=== PATIENT | female | born 1940 | race Caucasian/White ===

== ENCOUNTER 2018-02-15 10:06 | Outpatient (CLI) | payer MEDICARE, OTHER, SELFPAY ==
[2018-02-15 10:30] LABS: HGB 10.9 g/dL (12.0-15.5); Mean Corp. HGB Concentration 32.1 g/dL (32.0-36.0); Mean Corpuscular Hemoglobin 34.2 pg (27.0-33.0); Mean Corpuscular Volume 106.6 fL (80-95); Mean Platelet Volume 9.3 fL (8.0-11.0); Platelet Count 253 x1000/uL (130-400); RBC 3.19 m/cumm (4.00-5.20); RBC Distribution Width 14.5 % (11.7-14.6); White Blood Cell Count 5.29 k/cumm (4.4-10.8)
[2018-02-15 11:24] LABS: ALT 18 U/L (12-78); AST 15 U/L (15-37); Albumin 3.9 g/dL (3.4-5.0); Alkaline Phosphatase 76 U/L (46-116); Anion Gap 7.7 mmol/L (3-11); BUN 16 mg/dL (7-18); Bilirubin, Total 0.4 mg/dL (0.2-1.0); CO2 24.3 mmol/L (21.0-32.0); CREATININE 1.33 mg/dL (0.55-1.02); Calcium 8.5 mg/dL (8.5-10.1); Chloride 107 mmol/L (98-107); Estimated GFR 38.79 (mL/min/1.73m2); Glucose 91 mg/dL (70-100); Potassium 4.5 mmol/L (3.5-5.1); Sodium 139 mmol/L (136-145)
[2018-02-15 11:28] LABS: C-Reactive Protein < 0.05 mg/dL (0.0-0.3)
[2018-02-15 13:38] LABS: ESR 22 MM/HR (0-30)
== END 2018-02-15 10:07 ==
PROVIDERS: PCP Nurse Practitioner; Visit Provider Internal Medicine Rheumatology
DX: M05.79 Rheumatoid arthritis with rheumatoid factor of multiple sites without organ or systems involvement (principal); Z79.899 Other long term (current) drug therapy
CPT/HCPCS: 36415; 80053; 85027; 85652; 86140

== ENCOUNTER 2018-02-22 10:32 | Outpatient (CLI) | payer MEDICARE, OTHER, SELFPAY ==
--- NOTE | 2018-02-22 10:47 | DI.REPORT_ITS ---
SYMPTOM/DIAGNOSIS: SEROPOSITIVE RHEUMATOID ARTHRITIS OF MULT JOINTS M05.79 RIGHT FOOT: The bones appear osteoporotic. A fixation plate is seen in the distal fibula. There has been a previous resection of the distal half of the proximal phalanx of the 2nd toe. The joint spaces are well maintained. No bony erosions are seen. There are no findings specific for rheumatoid arthritis. IMPRESSION: Post surgical changes. LEFT FOOT: The bones appear diffusely osteoporotic. No fracture or bony erosions are seen. The joint spaces are well maintained. IMPRESSION: No specific findings for rheumatoid arthritis.
== END 2018-02-22 10:33 ==
PROVIDERS: PCP Nurse Practitioner; Visit Provider Internal Medicine Rheumatology
DX: M05.79 Rheumatoid arthritis with rheumatoid factor of multiple sites without organ or systems involvement (principal); M81.0 Age-related osteoporosis without current pathological fracture; Z98.890 Other specified postprocedural states
CPT/HCPCS: 73630 ×2

== ENCOUNTER 2018-06-22 10:04 | Outpatient (CLI) | payer MEDICARE, OTHER, SELFPAY ==
[2018-06-22 11:16] LABS: HCT 35.8 % (36.0-46.0); HGB 11.4 g/dL (12.0-15.5); Mean Corp. HGB Concentration 31.8 g/dL (32.0-36.0); Mean Corpuscular Hemoglobin 33.5 pg (27.0-33.0); Mean Corpuscular Volume 105.3 fL (80-95); Mean Platelet Volume 10.1 fL (8.0-11.0); Platelet Count 248 x1000/uL (130-400); RBC Distribution Width 14.7 % (11.7-14.6); White Blood Cell Count 5.69 k/cumm (4.4-10.8)
[2018-06-22 11:19] LABS: ALT 29 U/L (12-78); AST 28 U/L (15-37); Albumin 3.9 g/dL (3.4-5.0); Alkaline Phosphatase 59 U/L (46-116); Anion Gap 7.7 mmol/L (3-11); BUN 18 mg/dL (7-18); Bilirubin, Total 0.4 mg/dL (0.2-1.0); CO2 28.3 mmol/L (21.0-32.0); CREATININE 1.55 mg/dL (0.55-1.02); Calcium 9.1 mg/dL (8.5-10.1); Chloride 104 mmol/L (98-107); Estimated GFR 32.42 (mL/min/1.73m2); Glucose 102 mg/dL (70-100); Potassium 4.2 mmol/L (3.5-5.1); Sodium 140 mmol/L (136-145); Total Protein 7.1 g/dL (6.4-8.2)
[2018-06-22 11:20] LABS: C-Reactive Protein < 0.05 mg/dL (0.0-0.3)
[2018-06-22 12:04] LABS: Vitamin B12 1542 pg/mL (193-986)
[2018-06-22 12:11] LABS: Folate > 20.0 ng/mL (8.6-20.0)
[2018-06-22 13:14] LABS: ESR 19 MM/HR (0-30)
[2018-06-24 07:57] LABS: Vitamin D 25 Total 53.3 ng/ml (30-100)
== END 2018-06-22 10:24 ==
PROVIDERS: PCP Nurse Practitioner; Visit Provider Internal Medicine Rheumatology
DX: M05.79 Rheumatoid arthritis with rheumatoid factor of multiple sites without organ or systems involvement (principal); Z79.899 Other long term (current) drug therapy; D75.89 Other specified diseases of blood and blood-forming organs; E55.9 Vitamin D deficiency, unspecified
CPT/HCPCS: 36415; 80053; 82306; 85027; 85652; 82607; 82746; 86140

== ENCOUNTER 2018-07-22 01:03 | Outpatient (RCR) | payer MEDICARE, OTHER, SELFPAY ==
[2018-07-22] MEDS: Denosumab 60 MG/ML SYR SC (10:03)
== END 2018-08-12 23:59 | disposition home or self-care (01) ==
LOC: INF 01:03
PROVIDERS: PCP Nurse Practitioner; Visit Provider Nurse Practitioner
DX: M81.0 Age-related osteoporosis without current pathological fracture (principal)
CPT/HCPCS: 96372; J0897

== ENCOUNTER 2018-07-29 09:13 | Outpatient (CLI) | payer MEDICARE, OTHER, SELFPAY ==
[2018-07-29 09:34] LABS: HCT 36.7 % (36.0-46.0); HGB 11.7 g/dL (12.0-15.5); Mean Corp. HGB Concentration 31.9 g/dL (32.0-36.0); Mean Corpuscular Hemoglobin 33.5 pg (27.0-33.0); Mean Corpuscular Volume 105.2 fL (80-95); Mean Platelet Volume 9.9 fL (8.0-11.0); Platelet Count 269 x1000/uL (130-400); RBC 3.49 m/cumm (4.00-5.20); RBC Distribution Width 14.4 % (11.7-14.6); White Blood Cell Count 4.52 k/cumm (4.4-10.8)
[2018-07-29 10:23] LABS: Anion Gap 9.4 mmol/L (3-11); BUN 14 mg/dL (7-18); CO2 26.6 mmol/L (21.0-32.0); CREATININE 1.53 mg/dL (0.55-1.02); Calcium 9.4 mg/dL (8.5-10.1); Chloride 106 mmol/L (98-107); Cholesterol 142 mg/dL (50-200); Estimated GFR 32.91 (mL/min/1.73m2); Glucose 92 mg/dL (70-100); HDL Cholesterol 60 mg/dL (40-60); LDL CHOLESTEROL 69 mg/dL (<100); Potassium 4.4 mmol/L (3.5-5.1); Sodium 142 mmol/L (136-145); Triglyceride 73 mg/dL (30-150)
== END 2018-07-29 09:33 ==
PROVIDERS: PCP Nurse Practitioner; Visit Provider Nurse Practitioner
DX: E03.9 Hypothyroidism, unspecified (principal); E78.5 Hyperlipidemia, unspecified; N18.9 Chronic kidney disease, unspecified; M06.9 Rheumatoid arthritis, unspecified; F32.9 Major depressive disorder, single episode, unspecified
CPT/HCPCS: 36415; 80048; 80061; 83721; 85027

== ENCOUNTER 2018-09-06 15:18 | Outpatient (REF) | payer MEDICARE, OTHER, SELFPAY | END 2018-09-06 15:38 | LOC: LBN 15:18 | PROVIDERS: PCP Nurse Practitioner; Visit Provider Nurse Practitioner | DX: E03.9 Hypothyroidism, unspecified (principal) | CPT/HCPCS: 84443 ==

== ENCOUNTER 2018-09-23 10:39 | Outpatient (CLI) | payer MEDICARE, OTHER, SELFPAY ==
[2018-09-23 11:20] LABS: HCT 34.4 % (36.0-46.0); HGB 11.3 g/dL (12.0-15.5); Mean Corp. HGB Concentration 32.8 g/dL (32.0-36.0); Mean Corpuscular Hemoglobin 33.8 pg (27.0-33.0); Mean Platelet Volume 9.6 fL (8.0-11.0); Platelet Count 266 x1000/uL (130-400); RBC 3.34 m/cumm (4.00-5.20); RBC Distribution Width 13.9 % (11.7-14.6); White Blood Cell Count 4.01 k/cumm (4.4-10.8)
[2018-09-23 12:01] LABS: ESR 27 MM/HR (0-30)
[2018-09-23 12:12] LABS: ALT 18 U/L (12-78); AST 22 U/L (15-37); Albumin 3.9 g/dL (3.4-5.0); Alkaline Phosphatase 64 U/L (46-116); Anion Gap 6.2 mmol/L (3-11); BUN 17 mg/dL (7-18); Bilirubin, Total 0.5 mg/dL (0.2-1.0); C-Reactive Protein 0.05 mg/dL (0.0-0.3); CO2 29.8 mmol/L (21.0-32.0); CREATININE 1.38 mg/dL (0.55-1.02); Calcium 9.5 mg/dL (8.5-10.1); Chloride 102 mmol/L (98-107); Estimated GFR 37.07 (mL/min/1.73m2); Glucose 88 mg/dL (70-100); Potassium 4.6 mmol/L (3.5-5.1); Sodium 138 mmol/L (136-145); Total Protein 7.1 g/dL (6.4-8.2)
== END 2018-09-23 10:59 ==
PROVIDERS: PCP Nurse Practitioner; Visit Provider Internal Medicine Rheumatology
DX: M05.79 Rheumatoid arthritis with rheumatoid factor of multiple sites without organ or systems involvement (principal); Z79.899 Other long term (current) drug therapy
CPT/HCPCS: 36415; 80053; 80061; 83721; 85027; 85652; 86140

== ENCOUNTER 2018-10-15 06:51 | Day surgery (SDC) | payer MEDICARE, OTHER, SELFPAY ==
--- NOTE | 2018-10-14 12:04 | W.PIPPEYE ---
History of Present Illness Chief Complaint: Progressive decreased vision, left eye Narrative: Patient is a 78-year-old lady who presented with complaints of progressive decreased vision in both eyes at both distance and near and significant glare. On examination she was noted to have bilateral nuclear and posterior subcapsular cataracts with visual acuity of 20/25 OD, 20/40 OS with significant glare disability. The option of cataract surgery was offered to the patient and she felt she was symptomatic enough that she wished to proceed. NOTE: The Chief Complaint, HPI, Past Medical History, Past Surgical History, Family History, Social History, Medications, and complete Ophthalmic Exam with detailed Assessment and Plan have already been documented in the patient's outpatient ophthalmic record and are not covered again in detail here. PFSH Medical History Nuclear sclerotic cataract of left eye (Acute) Posterior subcapsular age-related cataract of left eye (Acute) History of CVA (cerebrovascular accident) (Acute) History of depression (Acute) Hx of coronary artery disease (Acute) Hx of rheumatoid arthritis (Acute) High cholesterol (Chronic) Surgical History History of ankle surgery (Acute) Toe Surgery (~03/2014) Family History Mother Neoplasm Father No problems noted. Social History Smoking/Tobacco Use Status: Former Tobacco Use Alcohol Intake: former Drug use: Never Substance use type: does not use Number of Children: 1 Pets and animals: Yes Pets and animals: cat(s) Current gender identity: female What type of physical activity do you participate in: other Details: line dancing Frequency: 1-2 times per week Do you feel safe in your relationship?: Yes Meds Home Medications Medication Instructions Recorded Confirmed Type coenzyme Q10 [Co Q-10] 100 mg PO DAILY 04/14/17 10/11/18 History folic acid 1 mg PO TID 04/14/17 10/11/18 History hydroxychloroquine 200 mg PO DAILY 04/14/17 10/11/18 History acetaminophen 500 mg PO BID 10/26/17 10/11/18 History calcium carbonate [Tums] 200 mg PO DAILY tab.chew 11/18/17 10/11/18 History cholecalciferol (vitamin D3) 5,000 unit PO DAILY 11/18/17 10/11/18 History fluticasone propionate 2 spry NS BID #1 canister 12/17/17 10/11/18 Rx atorvastatin [Lipitor] 20 mg PO HS #90 tab-cap 01/04/18 10/11/18 Rx levothyroxine 75 mcg PO DAILY #90 tab-cap 01/04/18 10/11/18 Rx denosumab [Prolia] 60 mg SQ .Q 6 MONTHS 01/20/18 10/11/18 History methotrexate sodium (PF) 50 mg 75 mg .ROUTE .COMPLEX 07/08/18 10/11/18 History solution for injection sulfasalazine 500 mg tablet 500 mg PO BID 07/20/18 10/11/18 History sertraline 50 mg tablet 50 mg PO DAILY #90 tab 08/24/18 10/11/18 Rx trazodone 150 mg tablet 150 mg PO HS #90 tab-cap 08/24/18 10/11/18 Rx vitamin [id number] B1 1,000 ml IM .MONTHLY 09/06/18 10/07/18 History mcg-100 mg/mL injection solution lorazepam 0.5 mg tablet 0.5 mg PO PRN PRN #30 tab-cap 09/15/18 10/11/18 Rx carboxymethylcellulose sodium 1 drp OPHTHALMIC (EYE) BID 10/11/18 10/11/18 History [TheraTears] Allergies Allergy/AdvReac Type Severity Reaction Status Date / Time amitriptyline HCl AdvReac Severe Excessive Verified 10/11/18 14:07 [From Elavil] tiredness, sleeping doxycycline AdvReac Severe Excessive Verified 10/11/18 14:07 tiredness, sleeping Exam OCULAR EXAM:: Most recent ocular examination is significant for best corrected visual acuity of 20/30 OD, 20/40 OS. Intraocular pressure is 14 OD, 12 OS. Extraocular motility is normal. Slit-lamp examination shows pupils dilating to 6 mm OU. 2+ nuclear cataract with posterior subcapsular cataract OU. Dilated funduscopic examination reveals disc cupping of 0.45 OU with normal vessels, macula, peripheral retina and vitreous. BRIGHTNESS ACUITY TESTING (BAT):: Brightness acuity testing of the left eye off is 20/40. Low is 20/70. Medium is 20/70. High is 20/100. Assessment and Plan (1) Posterior subcapsular age-related cataract of left eye: Current visit: No Status: Acute Assessment: Visually significant cataract, left eye. Plan: Cataract extraction with intraocular lens implantation, left eye (2) Nuclear sclerotic cataract of left eye: Current visit: No Status: Acute Assessment: Visually significant cataract, left eye. Plan: Cataract extraction with intraocular lens implantation, left eye Note: NOTE:: The details of the planned surgery, including the risks, indications,limitations,expectations,outcome and possible complications were explained to the patient. The patient understands the complications including, but not limited to: infection, hemorrhage, posterior dislocation of the lens or nuclear fragments which may require the intervention of a vitreoretinal surgeon, possible loss of the eye, or from anesthetic complications. The patient has been made aware of the option of not having surgery, that vision following surgery may not be equal to that prior to surgery, and that the planned surgery may not achieve the intended results. Following this discussion, which the patient appeared to understand, the patient wishes to proceed with cataract surgery with lens implantation of the affected eye to improve and maximize vision.
[2018-10-15 07:20] VITALS: BP 141/77; PULSE 97; RESP 18; TEMP 36.3; O2SAT 96
[2018-10-15] MEDS: Tetracaine 0.5% 4 ML BTL OS ×4 (07:24→08:23)
[2018-10-15] MEDS: Tropicam./Phenyleph. (1/2.5%) 5 ML BTL OS ×3 (07:24→07:31)
--- NOTE | 2018-10-15 08:08 | W.PM.DSUDISC ---
Discharge Plan Disposition Patient Disposition: HOME Condition: Stable Discharge Details Attending Provider: Doug Lieberman Primary Care Provider: Inge Stiles Home Meds and New Rx's Prescriptions: No Action acetaminophen 500 MG tablet 500 mg PO BID RF: 0 cholecalciferol (vitamin D3) 5,000 UNIT tablet 5,000 unit PO DAILY RF: 0 calcium carbonate [Tums] 200 MG tablet,chewable 200 mg PO DAILY RF: 0 fluticasone propionate 16 GM spray,suspension 2 spry NS BID Qty: 1 RF: 12 atorvastatin [Lipitor] 20 MG tablet 20 mg PO HS Qty: 90 RF: 3 levothyroxine 75 MCG tablet 75 mcg PO DAILY Qty: 90 RF: 3 Prolia 60 MG/1 ML syringe 60 mg SQ .Q 6 MONTHS RF: 0 methotrexate sodium (PF) 50 mg recon soln 75 mg .ROUTE .COMPLEX RF: 0 sertraline 50 mg tablet 50 mg PO DAILY Qty: 90 RF: 3 trazodone 150 mg tablet 150 mg PO HS Qty: 90 RF: 3 lorazepam 0.5 mg tablet 0.5 mg PO PRN PRN (Reason: anxiety) Qty: 30 RF: 2 TheraTears 1 % Dropperette,Gel 1 drp OPHTHALMIC (EYE) BID RF: 0 Discharge Instructions Stand Alone Forms: Post-op Topical CataractHolly (DSU) Discharge Orders Discharge Orders: Discharge Order (Routine); Ordered 10/15/18 Ordered By: Doug Lieberman DS: Diagnosis Discharge Diagnosis (1) Posterior subcapsular age-related cataract of left eye: Status: Resolved (2) Nuclear sclerotic cataract of left eye: Status: Resolved (3) Status post cataract extraction and insertion of intraocular lens of left eye: Status: Chronic
--- NOTE | 2018-10-15 08:09 | W.PM.OP ---
Date of service: 10/15/18 Time of Service: 08:48 Operative Note PRE-OP DIAGNOSIS: Cataract, left eye POST-OP DIAGNOSIS: same PROCEDURE: Cataract extraction using phacoemulsification with intraocular lens implant, left eye SURGEON: Doug Lieberman ANESTHESIA: MAC and local (sub-tenon's anesthetic infiltration) PATHOLOGY: none sent COMPLICATIONS: None Patient was transported to: same day Patient's condition: stable Implants: [employer] / [employer] Tecnis [id number] Indications: Progressive decreased vision due to cataract, left eye Procedure Description: CATARACT SURGERY OPERATIVE REPORT PREOPERATIVE DIAGNOSIS: Nuclear/posterior subcapsular cataract, left eye POSTOPERATIVE DIAGNOSIS: Same OPERATION: Cataract extraction using phacoemulsification with posterior chamber intraocular lens implant, left eye. IOL: IOL Carburizing Furnace Operator/Model: [employer] / MAXIMINO Tecnis ZCB00 IOL Power: + 23.0 diopters IOL Serial Number: [id number] Optic Diameter: 6.0mm Haptic/Overall Diameter: 13.0mm PHACO INFO: [employer] Vision System with OZil and Active [employer]uidics Cumulative Dispersed Energy (CDE): 11.73 seconds SURGEON: Doug Lieberman MD, [facility] ANESTHESIA: Monitored Anesthesia Care (MAC), with local sub-tenon's anesthetic infiltration COMPLICATIONS: None SPECIMENS: None INDICATIONS FOR PROCEDURE: The patient is a 78-year old lady with history of diminished visual acuity in both eyes secondary to the development of bilateral nuclear posterior subcapsular cataract. She was significantly symptomatic that she desired cataract surgery and attempt to improve and maximize her vision PROCEDURE: The correct surgical eye was identified and marked as the left eye and the pupil was dilated in the preoperative area using mydriatics and cycloplegics. The dilated pupil size was 6.5 mm. Oral sedation was administered in the form of an Imprimis MKO Melt (midazolam 3mg/ketamine 25mg/ondansetron 2mg). The patient was brought to the operating room where cardiopulmonary monitoring was instituted and surgical time-out was performed, confirming the correct operative eye and IOL power. Topical anesthesia was administered and ophthalmic povidone-iodine 5% was instilled into the conjunctival fornices. Lidocaine gel was applied to the cornea and the davidson-ocular area was prepped with Betadine 10% solution and draped in the usual sterile fashion for intraocular surgery, including an aperture drape. A Tegaderm transparent film dressing was cut in half and used to cover the lashes and lid margins. Care was taken to sequester the lashes and lid margins under the Tegaderm dressing. A lid speculum was placed between the lids of the operative eye and the Filiberto-Ella operating microscope was maneuvered into position. Aditya scissors were then used to make a conjunctival buttonhole approximately 6mm posterior to the limbus in the inferonasal quadrant. Blunt dissection was carried out to expose bare sclera, and a blunt-tipped sub-tenon?s anesthesia cannula was introduced and passed posteriorly along the globe where non-preserved plain lidocaine was injected into posterior sub-Tenon?s space. A sideport knife was used to make a paracentesis port superior/superiortemporal, and the anterior chamber was filled with Healon GV. A 2.4mm keratome knife was used to create a half-thickness groove at the limbus and then to construct a three-plane near-clear corneal tunnel extending 2.0mm into clear cornea in the temporal position. . A flap was raised on the anterior capsule and capsulorhexis forceps were used to complete a continuous curvilinear capsulorhexis of 5.0 mm. Balanced salt solution was then used to perform cortical cleaving hydrodissection and nuclear hydrodelineation until the lens could be freely rotated within the capsular bag. The lens nucleus was then disassembled and removed within the capsular bag and iris plane using phacoemulsification. Residual cortical material was removed using the 45-degree angled silicone I/A tip with 0.3mm port. The posterior capsule was carefully polished to remove as much residual lens epithelial cells as safely possible. The capsular bag was then inflated and the anterior chamber deepened with viscoelastic. The lens implant described above was inserted into the capsular bag using the MAXIMINO [place] Injector. A Kuglen hook was used to dial the IOL into position. Residual viscoelastic was then removed first from posterior to the IOL, then from the anterior chamber using the I/A handpiece. The lens implant was noted to center nicely within the capsular bag. The incisions were stromally hydrated, and the anterior chamber was reformed using BSS. Then 0.4cc of moxifloxacin 1.5mg/ml were injected into the capsular bag and anterior chamber. The incisions were checked with a Weck spear and found to be secure. Several drops of ophthalmic povidone-iodine 5% were then applied to the eye followed by two drops of Imprimis combination gatifloxacin/dexamethasone solution. The drapes were removed and a clear plastic protective eye shield was placed over the eye. The patient was then returned to [facility] in stable condition.
[2018-10-15] MEDS: Lidocaine 2% Jelly 6 ML SYR (08:23)
[2018-10-15] MEDS: Povidone-Iodine Ophth 30 ML BTL (08:24)
[2018-10-15] MEDS: Lidocaine 1% Pres-Free 5 ML VIAL (08:27)
[2018-10-15] MEDS: Balanced Salt Soln.-PLUS 500 ML BAG (08:27)
[2018-10-15 09:15] VITALS: BP 119/69; PULSE 83; RESP 18; O2SAT 97
== END 2018-10-15 09:35 | disposition home or self-care (01) ==
PROVIDERS: PCP Nurse Practitioner; Visit Provider Ophthalmology
PROC: (CPT 66984; principal; 2018-10-15 08:30)
DX: H25.812 Combined forms of age-related cataract, left eye (principal)
CPT/HCPCS: 66984; V2632

== ENCOUNTER 2018-10-18 14:45 | Outpatient (CLI) | payer MEDICARE, OTHER, SELFPAY ==
--- NOTE | 2018-10-18 12:00 | DI.RAD_ITS ---
SYMPTOMS/DIAGNOSIS: NEW ONSET LOW BACK PAIN, M54.5, OSTEOPOROSIS, ? FX LUMBAR SPINE: AP, lateral and bilateral oblique views were obtained. There are five lumbar- type vertebral bodies. No spondylolysis or spondylolisthesis is seen. There is a mild left convex scoliotic curvature of the lumbar spine. There is moderate disc space narrowing at L3-L4. Endplate osteophytes are seen at L2-L3 and L3- L4. There are degenerative changes of the facets at L4-L5 and L5-S1. No acute fractures or subluxations are seen. There is calcium within the abdominal aorta. IMPRESSION: Mild to moderate degenerative changes of the lumbar spine. No acute fractures or subluxations.
== END 2018-10-18 15:05 ==
PROVIDERS: PCP Nurse Practitioner; Visit Provider Family Medicine
DX: M54.5 Low back pain (principal); M81.0 Age-related osteoporosis without current pathological fracture; M51.37 Other intervertebral disc degeneration, lumbosacral region
CPT/HCPCS: 72110

== ENCOUNTER 2018-11-05 06:28 | Day surgery (SDC) | payer MEDICARE, OTHER, SELFPAY ==
--- NOTE | 2018-11-04 12:49 | W.PIPPEYE ---
History of Present Illness Chief Complaint: Progressive decreased vision, right eye Narrative: The patient is a 78-year-old lady with history of progressive decreased vision in both eyes at both distance and near. She notes significant difficulty with glare. She uses a magnifying glass to read and use her tablet. On examination she was noted to have bilateral nuclear and posterior subcapsular cataracts. She was significantly symptomatic she desires cataract surgery which was performed OS on 10/15/2018. Postoperatively she has regained best corrected vision of 20/30 in the left eye. She now presents for cataract surgery in the right eye. NOTE: The Chief Complaint, HPI, Past Medical History, Past Surgical History, Family History, Social History, Medications, and complete Ophthalmic Exam with detailed Assessment and Plan have already been documented in the patient's outpatient ophthalmic record and are not covered again in detail here. PFS Medical History History of CVA (cerebrovascular accident) (Acute) History of depression (Acute) Hx of coronary artery disease (Acute) Hx of rheumatoid arthritis (Acute) High cholesterol (Chronic) Nuclear sclerotic cataract of left eye (Resolved) Posterior subcapsular age-related cataract of left eye (Resolved) Surgical History Status post cataract extraction and insertion of intraocular lens of left eye (Chronic 10/15/18) History of ankle surgery (Acute) Toe Surgery (~03/2014) Family History Mother Neoplasm Father No problems noted. Social History Smoking/Tobacco Use Status: Former Tobacco Use Alcohol Intake: former Drug use: Never Substance use type: does not use Number of Children: 1 Pets and animals: Yes Pets and animals: cat(s) Current gender identity: female What type of physical activity do you participate in: other Details: line dancing Frequency: 1-2 times per week Do you feel safe in your relationship?: Yes Meds Home Medications Medication Instructions Recorded Confirmed Type coenzyme Q10 [Co Q-10] 100 mg PO DAILY 04/14/17 10/18/18 History folic acid 1 mg PO TID 04/14/17 10/18/18 History hydroxychloroquine 200 mg PO DAILY 04/14/17 10/18/18 History acetaminophen 500 mg PO BID 10/26/17 10/18/18 History calcium carbonate [Tums] 200 mg PO DAILY tab.chew 11/18/17 10/18/18 History cholecalciferol (vitamin D3) 5,000 unit PO DAILY 11/18/17 10/18/18 History fluticasone propionate 2 spry NS BID #1 canister 12/17/17 10/18/18 Rx atorvastatin [Lipitor] 20 mg PO HS #90 tab-cap 01/04/18 10/18/18 Rx levothyroxine 75 mcg PO DAILY #90 tab-cap 01/04/18 10/18/18 Rx denosumab [Prolia] 60 mg SQ .Q 6 MONTHS 01/20/18 10/18/18 History methotrexate sodium (PF) 50 mg 75 mg .ROUTE .COMPLEX 07/08/18 10/18/18 History solution for injection sulfasalazine 500 mg tablet 500 mg PO BID 07/20/18 10/18/18 History sertraline 50 mg tablet 50 mg PO DAILY #90 tab 08/24/18 10/18/18 Rx trazodone 150 mg tablet 150 mg PO HS #90 tab-cap 08/24/18 10/18/18 Rx vitamin [id number]-[id number] B1 1,000 ml IM .MONTHLY 09/06/18 10/18/18 History mcg-100 mg/mL injection solution lorazepam 0.5 mg tablet 0.5 mg PO PRN PRN #30 tab-cap 09/15/18 10/18/18 Rx carboxymethylcellulose sodium 1 drp OPHTHALMIC (EYE) BID 10/11/18 10/18/18 History [TheraTears] Allergies Allergy/AdvReac Type Severity Reaction Status Date / Time amitriptyline HCl AdvReac Severe Excessive Verified 10/18/18 11:52 [From Elavil] tiredness, sleeping doxycycline AdvReac Severe Excessive Verified 10/18/18 11:52 tiredness, sleeping Exam OCULAR EXAM:: Most recent ocular examination reveals corrected visual acuity of 20/30 OD, best corrected vision of 20/30 OS. Intraocular pressure is 14 OD, OS. Extraocular motility is normal. Pupils equal, round, and reactive without afferent pupillary defect slit-lamp examination is significant for pupils dilating to 6 mm OU. 2+ nuclear 1+ central posterior subcapsular cataract OD. Well-positioned PCIOL OS with clear posterior capsule. Dilated funduscopic examination shows disc cupping of 0.45 OU with normal vessels, macula, peripheral retina and vitreous. BRIGHTNESS ACUITY TESTING (BAT):: Testing of the right eye is 20/30. Low is 20/30. Medium is 20/50. On the high setting is 20/80. Assessment and Plan (1) Posterior subcapsular age-related cataract, right eye: Current visit: No Status: Acute (2) Nuclear sclerotic cataract of right eye: Current visit: No Status: Acute Note: NOTE:: The details of the planned surgery, including the risks, indications,limitations,expectations,outcome and possible complications were explained to the patient. The patient understands the complications including, but not limited to: infection, hemorrhage, posterior dislocation of the lens or nuclear fragments which may require the intervention of a vitreoretinal surgeon, possible loss of the eye, or from anesthetic complications. The patient has been made aware of the option of not having surgery, that vision following surgery may not be equal to that prior to surgery, and that the planned surgery may not achieve the intended results. Following this discussion, which the patient appeared to understand, the patient wishes to proceed with cataract surgery with lens implantation of the affected eye to improve and maximize vision.
[2018-11-05 06:48] VITALS: BP 121/70; PULSE 96; RESP 18; TEMP 36.2; O2SAT 95
[2018-11-05] MEDS: Tropicam./Phenyleph. (1/2.5%) 5 ML BTL OD ×3 (06:52→06:57)
[2018-11-05] MEDS: Tetracaine 0.5% 4 ML BTL OD ×4 (06:53→07:30)
--- NOTE | 2018-11-05 07:15 | W.PM.DSUDISC ---
Discharge Plan Disposition Patient Disposition: HOME Condition: Stable Discharge Details Attending Provider: Doug Lieberman Primary Care Provider: Inge Stiles Home Meds and New Rx's Prescriptions: No Action vitamin J93-lxyfprl B1 1,000-100 mg/mL solution IM .MONTHLY RF: 0 acetaminophen 500 MG tablet 500 mg PO BID RF: 0 cholecalciferol (vitamin D3) 5,000 UNIT tablet 5,000 unit PO DAILY RF: 0 calcium carbonate [Tums] 200 MG tablet,chewable 200 mg PO DAILY RF: 0 fluticasone propionate 16 GM spray,suspension 2 spry NS BID Qty: 1 RF: 12 atorvastatin [Lipitor] 20 MG tablet 20 mg PO HS Qty: 90 RF: 3 levothyroxine 75 MCG tablet 75 mcg PO DAILY Qty: 90 RF: 3 Prolia 60 MG/1 ML syringe 60 mg SQ .Q 6 MONTHS RF: 0 methotrexate sodium (PF) 50 mg recon soln 75 mg .ROUTE .COMPLEX RF: 0 sertraline 50 mg tablet 50 mg PO DAILY Qty: 90 RF: 3 trazodone 150 mg tablet 150 mg PO HS Qty: 90 RF: 3 lorazepam 0.5 mg tablet 0.5 mg PO PRN PRN (Reason: anxiety) Qty: 30 RF: 2 folic acid 1 MG tablet 1 mg PO TID RF: 0 hydroxychloroquine 200 MG tablet 200 mg PO DAILY RF: 0 coenzyme Q10 [Co Q-10] 100 MG capsule 100 mg PO DAILY RF: 0 sulfasalazine [Azulfidine] 500 mg tablet 500 mg PO BID RF: 0 TheraTears 1 % Dropperette,Gel 1 drp OPHTHALMIC (EYE) BID RF: 0 Discharge Instructions Stand Alone Forms: Post-op Topical Cataract, Holly Esteves (DSU) Discharge Orders Discharge Orders: Discharge Order (Routine); Ordered 11/05/18 Ordered By: Doug Lieberman DS: Diagnosis Discharge Diagnosis (1) Posterior subcapsular age-related cataract, right eye: Status: Resolved (2) Nuclear sclerotic cataract of right eye: Status: Resolved (3) Status post cataract extraction and insertion of intraocular lens of right eye: Status: Chronic
--- NOTE | 2018-11-05 07:16 | ROE_ITS ---
Date of service: 11/05/18 Time of Service: 07:57 Operative Note PRE-OP DIAGNOSIS: Cataract, right eye PROCEDURE: Cataract extraction using phacoemulsification with intraocular lens implant, right eye SURGEON: Doug Lieberman ANESTHESIA: MAC and local (sub-tenon's anesthetic infiltration) ESTIMATED BLOOD LOSS: 0 PATHOLOGY: none sent COMPLICATIONS: None Patient was transported to: same day Patient's condition: stable Implants: [employer] / [employer] Tecnis ZCB00 intraocular lens Indications: Progressive decreased vision due to cataract, right eye Procedure Description: CATARACT SURGERY OPERATIVE REPORT PREOPERATIVE DIAGNOSIS: Nuclear/posterior subcapsular cataract, right eye POSTOPERATIVE DIAGNOSIS: Same OPERATION: Cataract extraction using phacoemulsification with posterior chamber intraocular lens implant, right eye. IOL: IOL Safety Associate/Model: [employer] / MAXIMINO Tecnis ZCB00 IOL Power: + 22.0 diopters IOL Serial Number: [id number] Optic Diameter: 6.0mm Haptic/Overall Diameter: 13.0mm PHACO INFO: [employer] Vision System with OZil and Active [employer]uidics Cumulative Dispersed Energy (CDE): 8.13 seconds SURGEON: Doug Lieberman MD, CHING ANESTHESIA: Monitored Anesthesia Care (MAC), with local sub-tenon's anesthetic infiltration COMPLICATIONS: None SPECIMENS: None INDICATIONS FOR PROCEDURE: The patient is a 78-year-old lady with history of diminished visual acuity and both eyes secondary to the development of bilateral nuclear and posterior subcapsular cataract. She has already undergone cataract surgery in her left eye, and now presents for cataract surgery in the right. PROCEDURE: The correct surgical eye was identified and marked as the right eye and the pupil was dilated in the preoperative area using mydriatics and cycloplegics. The dilated pupil size was 7.0 mm. Oral sedation was administered in the form of an Imprimis MKO Melt (midazolam 3mg/ketamine 25mg/ondansetron 2mg). The patient was brought to the operating room where cardiopulmonary monitoring was instituted and surgical time-out was performed, confirming the correct operative eye and IOL power. Topical anesthesia was administered and ophthalmic povidone-iodine 5% was instilled into the conjunctival fornices. Lidocaine gel was applied to the cornea and the davidson-ocular area was prepped with Betadine 10% solution and draped in the usual sterile fashion for intraocular surgery, including an aperture drape. A Tegaderm transparent film dressing was cut in half and used to cover the lashes and lid margins. Care was taken to sequester the lashes and lid margins under the Tegaderm dressing. A lid speculum was placed between the lids of the operative eye and the Filiberto-Ella operating microscope was maneuvered into position. Aditya scissors were then used to make a conjunctival buttonhole approximately 6mm posterior to the limbus in the inferonasal quadrant. Blunt dissection was carried out to expose bare sclera, and a blunt-tipped sub-tenon?s anesthesia cannula was introduced and passed posteriorly along the globe where non- preserved plain lidocaine was injected into posterior sub-Tenon?s space. A sideport knife was used to make a paracentesis port inferiortemporally, and the anterior chamber was filled with Healon GV. A 2.4mm keratome knife was used to create a half-thickness groove at the limbus and then to construct a three-plane near-clear corneal tunnel extending 2.0mm into clear cornea in the superiortemporal position. . A flap was raised on the anterior capsule and capsulorhexis forceps were used to complete a continuous curvilinear capsulorhexis of 5.0 mm. Balanced salt solution was then used to perform cortical cleaving hydro dissection and nuclear hydrodelineation until the lens could be freely rotated within the capsular bag. The lens nucleus was then disassembled and removed within the capsular bag and iris plane using phacoemulsification. Residual cortical material was removed using the I/A handpiece. The posterior capsule was carefully polished to remove as much residual lens epithelial cells as safely possible. The capsular bag was then inflated and the anterior chamber deepened with viscoelastic. The lens implant described above was inserted into the capsular bag using the MAXIMINO [place] Injector. A Kuglen hook was used to dial the IOL into position. Residual viscoelastic was then removed first from posterior to the IOL, then from the anterior chamber using the I/A handpiece. The lens implant was noted to center nicely within the capsular bag. The incisions were stromally hydrated, and the anterior chamber was reformed using BSS. Then 0.4cc of moxifloxacin 1.5mg/ml were injected into the capsular bag and anterior chamber. The incisions were checked with a Weck spear and found to be secure. Next, a 1cc mixture of Kenalog 20 mg in 0.5 cc and moxifloxacin 2.5 mg in 0.5 cc was injected into posterior sub-tenon's space using the sub-tenon's anesthesia cannula. Several drops of ophthalmic povidone-iodine 5% were then applied to the eye followed by two drops of Imprimis combination gatifloxacin/dexamethasone solution. The drapes were removed and a clear plastic protective eye shield was placed over the eye. The patient was then returned to Same Day Surgery in stable condition.
[2018-11-05] MEDS: Povidone-Iodine Ophth 30 ML BTL (07:30)
[2018-11-05] MEDS: Lidocaine 2% Jelly 6 ML SYR (07:30)
[2018-11-05] MEDS: Lidocaine 1% Pres-Free 5 ML VIAL (07:38)
[2018-11-05] MEDS: Balanced Salt Soln.-PLUS 500 ML BAG (07:38)
[2018-11-05] MEDS: Triamcinolone 40 MG/ML VIAL (07:51)
[2018-11-05 08:23] VITALS: BP 109/63; PULSE 79; RESP 16; TEMP 36; O2SAT 95
== END 2018-11-05 08:25 | disposition home or self-care (01) ==
PROVIDERS: PCP Nurse Practitioner; Visit Provider Ophthalmology
PROC: (CPT 66984; principal; 2018-11-05 07:30)
DX: H25.811 Combined forms of age-related cataract, right eye (principal); Z98.42 Cataract extraction status, left eye; Z96.1 Presence of intraocular lens
CPT/HCPCS: 66984; V2632

== ENCOUNTER 2019-01-07 01:53 | Outpatient (RCR) | payer MEDICARE, OTHER, SELFPAY ==
[2019-01-07] MEDS: Denosumab 60 MG/ML SYR SC (10:48)
== END 2019-01-09 23:59 | disposition home or self-care (01) ==
LOC: INF 01:53
PROVIDERS: PCP Nurse Practitioner; Visit Provider Nurse Practitioner
DX: M81.0 Age-related osteoporosis without current pathological fracture (principal)
CPT/HCPCS: 96372; J0897

== ENCOUNTER 2019-01-21 00:54 | Outpatient (CLI) | payer MEDICARE, OTHER, SELFPAY ==
--- NOTE | 2019-01-21 15:00 | DI.US_ITS ---
SYMPTOMS/DIAGNOSIS: CKD STAGE 3, GFR 30-59 ML/MIN, N18.3, INCREASED CREATININE W/O CLEAR CAUSE RENAL ULTRASOUND: Routine examination was performed. The right kidney measures 8.3 cm in length. There is mild renal cortical atrophy. No renal mass, calculus or obstruction is seen. There is blood flow seen to the right kidney. The left kidney measures 8 cm in length with renal cortical thinning. No solid renal mass, calculus or obstruction is seen. There is blood flow seen to the left kidney. The prevoid urinary bladder volume is 18 cc's. The bladder completely emptied upon voiding. The ureteral jets were not visualized during the examination. No intraluminal mass is seen. IMPRESSION: Bilateral renal cortical atrophy.
[2019-01-21 16:51] LABS: Calculated LDL 65 mg/dL; Cholesterol 141 mg/dL (50-200); HDL Cholesterol 66 mg/dL (40-60); Triglyceride 51 mg/dL (30-150)
== END 2019-01-21 01:14 ==
PROVIDERS: Nurse Practitioner; Visit Provider Internal Medicine Nephrology
DX: E78.00 Pure hypercholesterolemia, unspecified (principal); N18.3 Chronic kidney disease, stage 3 (moderate); R79.89 Other specified abnormal findings of blood chemistry; N26.1 Atrophy of kidney (terminal)
CPT/HCPCS: 36415; 76770; 80061; 83721

== ENCOUNTER 2019-06-03 02:17 | Outpatient (RCR) | payer MEDICARE, OTHER, SELFPAY ==
[2019-06-03] MEDS: Denosumab 60 MG/ML SYR SC (10:43)
== END 2019-06-11 23:59 | disposition home or self-care (01) ==
LOC: INF 02:17
PROVIDERS: PCP Nurse Practitioner; Visit Provider Nurse Practitioner
DX: M81.0 Age-related osteoporosis without current pathological fracture (principal)
CPT/HCPCS: 96372; J0897

== ENCOUNTER 2019-07-25 07:58 | Outpatient (CLI) | payer MEDICARE, OTHER, SELFPAY ==
[2019-07-25 08:19] LABS: HCT 37.1 % (36.0-46.0); HGB 11.9 g/dL (12.0-15.5); Mean Corp. HGB Concentration 32.1 g/dL (32.0-36.0); Mean Corpuscular Hemoglobin 33.1 pg (27.0-33.0); Mean Corpuscular Volume 103.3 fL (80-95); Mean Platelet Volume 9.5 fL (8.0-11.0); Platelet Count 297 x1000/uL (130-400); RBC 3.59 m/cumm (4.00-5.20); RBC Distribution Width 14.3 % (11.7-14.6); White Blood Cell Count 4.49 k/cumm (4.4-10.8)
[2019-07-25 09:17] LABS: ALT 15 U/L (14-59); AST 17 U/L (15-37); Alkaline Phosphatase 50 U/L (46-116); BUN 14 mg/dL (7-18); Bilirubin, Total 0.4 mg/dL (0.2-1.0); CREATININE 1.56 mg/dL (0.55-1.02); Calcium 9.3 mg/dL (8.5-10.1); Chloride 104 mmol/L (98-107); Glucose 89 mg/dL (74-106); Potassium 4.2 mmol/L (3.5-5.1); Sodium 141 mmol/L (136-145); TSH (W/Ref FT4) 2.84 uIU/mL (0.36-3.74); Total Protein 7.1 g/dL (6.4-8.2)
[2019-07-25 09:29] LABS: Calculated LDL 70 mg/dL; Cholesterol 149 mg/dL (<200); HDL Cholesterol 69 mg/dL (40-60); Triglyceride 50 mg/dL (<150)
== END 2019-07-25 08:18 ==
PROVIDERS: PCP Nurse Practitioner; Visit Provider Nurse Practitioner
DX: E03.9 Hypothyroidism, unspecified (principal); E78.49 Other hyperlipidemia; I10 Essential (primary) hypertension; N18.3 Chronic kidney disease, stage 3 (moderate); I63.9 Cerebral infarction, unspecified; D51.9 Vitamin B12 deficiency anemia, unspecified
CPT/HCPCS: 36415; 80053; 80061; 85027; 84443

== ENCOUNTER 2019-11-03 01:38 | Outpatient (CLI) | payer MEDICARE, OTHER, SELFPAY ==
[2019-11-03 09:51] LABS: Absolute Basophil Count 0.09 k/cumm (0.0-0.2); Absolute Lymphocyte Count 1.39 k/cumm (1.2-3.4); Absolute Monocyte Count 0.47 k/cumm (0.11-0.7); Absolute Neutrophil Count 1.94 k/cumm (1.2-6.7); Basophils % 2.2; Eosinophils % 4.9; HCT 33.8 % (36.0-46.0); HGB 10.8 g/dL (12.0-15.5); Mean Corpuscular Volume 103.4 fL (80-95); Monocytes % 11.5; Neutrophils % 47.4; Platelet Count 285 x1000/uL (130-400); RBC 3.27 m/cumm (4.00-5.20); RBC Distribution Width 14.6 % (11.7-14.6); White Blood Cell Count 4.09 k/cumm (4.4-10.8)
[2019-11-03 10:35] LABS: ALT 28 U/L (14-59); AST 28 U/L (15-37); Albumin 3.8 g/dL (3.4-5.0); Alkaline Phosphatase 48 U/L (46-116); Anion Gap 7.8 mmol/L (3-11); BUN 17 mg/dL (7-18); Bilirubin, Total 0.4 mg/dL (0.2-1.0); C-Reactive Protein 0.07 mg/dL (0.0-0.3); CO2 28.2 mmol/L (21.0-32.0); CREATININE 1.52 mg/dL (0.55-1.02); Chloride 104 mmol/L (98-107); Estimated GFR 33.08 (mL/min/1.73m2); Glucose 86 mg/dL (74-106); Potassium 4.5 mmol/L (3.5-5.1); Sodium 140 mmol/L (136-145); Total Protein 6.9 g/dL (6.4-8.2)
[2019-11-03 11:42] LABS: ESR 17 mm/hr (0-30)
[2019-11-04 10:09] LABS: Hepatitis C Ab w Rflx HCV PCR Negative (Negative)
[2019-11-04 10:10] LABS: HBs Antibody, Quant <3.1 mIU/mL (See Note); Hepatitis B Surface Ab Negative (See Note)
[2019-11-04 10:11] LABS: HIV-1/2 Ag & Ab Screen Negative (Negative)
[2019-11-04 11:01] LABS: Hepatitis B Surface Ag Negative (Negative)
[2019-11-08 13:51] LABS: TB Interpretation Negative (Negative)
== END 2019-11-03 01:58 ==
PROVIDERS: PCP Nurse Practitioner; Visit Provider Internal Medicine
DX: M05.9 Rheumatoid arthritis with rheumatoid factor, unspecified (principal); Z11.4 Encounter for screening for human immunodeficiency virus [HIV]; Z11.59 Encounter for screening for other viral diseases; Z01.84 Encounter for antibody response examination
CPT/HCPCS: 36415; 80053; 85652; 86706; 86803; 87340; 87389; 85025; 86140; 86480; 86704

== ENCOUNTER 2019-12-12 08:36 | Outpatient (CLI) | payer MEDICARE, OTHER, SELFPAY ==
[2019-12-12 14:07] LABS: Abs Immature Grans 0.01 k/cumm (0.0-0.09); Absolute Basophil Count 0.06 k/cumm (0.0-0.2); Absolute Eosinophil Count 0.21 k/cumm (0.0-0.7); Absolute Lymphocyte Count 2.35 k/cumm (1.2-3.4); Absolute Monocyte Count 0.74 k/cumm (0.11-0.7); Absolute Neutrophil Count 3.02 k/cumm (1.2-6.7); Basophils % 0.9; Eosinophils % 3.3; HCT 37.4 % (36.0-46.0); HGB 12.1 g/dL (12.0-15.5); Immature Grans % 0.2 %; Lymphocytes % 36.8; Mean Corp. HGB Concentration 32.4 g/dL (32.0-36.0); Mean Corpuscular Hemoglobin 33.2 pg (27.0-33.0); Mean Corpuscular Volume 102.5 fL (80-95); Mean Platelet Volume 9.8 fL (8.0-11.0); Monocytes % 11.6; Neutrophils % 47.2; Platelet Count 284 x1000/uL (130-400); RBC 3.65 m/cumm (4.00-5.20); White Blood Cell Count 6.39 k/cumm (4.4-10.8)
[2019-12-12 14:51] LABS: ESR 12 mm/hr (0-30)
[2019-12-12 14:59] LABS: ALT 19 U/L (14-59); AST 19 U/L (15-37); Albumin 3.9 g/dL (3.4-5.0); Alkaline Phosphatase 55 U/L (46-116); Anion Gap 6.6 mmol/L (3-11); BUN 19 mg/dL (7-18); Bilirubin, Total 0.4 mg/dL (0.2-1.0); C-Reactive Protein 0.07 mg/dL (0.0-0.3); CO2 28.4 mmol/L (21.0-32.0); CREATININE 1.69 mg/dL (0.55-1.02); Calcium 9.5 mg/dL (8.5-10.1); Chloride 101 mmol/L (98-107); Estimated GFR 29.27 (mL/min/1.73m2); Glucose 85 mg/dL (74-106); Magnesium 2.1 mg/dL (1.8-2.4); Potassium 4.3 mmol/L (3.5-5.1); Sodium 136 mmol/L (136-145); Total Protein 7.1 g/dL (6.4-8.2)
[2019-12-13 15:01] LABS: Parathyroid Hormone,Intact 83 pg/mL (19-88)
[2019-12-15 08:49] LABS: 25-Hydroxy D Total 63 ng/mL; 25-Hydroxy D2 <4.0 ng/mL; 25-Hydroxy D3 63 ng/mL
== END 2019-12-12 08:56 ==
PROVIDERS: PCP Nurse Practitioner; Visit Provider Internal Medicine
DX: M05.9 Rheumatoid arthritis with rheumatoid factor, unspecified (principal); M81.0 Age-related osteoporosis without current pathological fracture
CPT/HCPCS: 36415; 80053; 82306; 85652; 83735; 83970; 84100; 85025; 86140

== ENCOUNTER 2019-12-28 02:33 | Outpatient (CLI) | payer MEDICARE, OTHER, SELFPAY ==
--- NOTE | 2019-12-28 | DI.US_ITS ---
EXAM: US RENAL CLINICAL HISTORY: CHRONIC KIDNEY DISEASE,N18.3, ELEVATED CREATININE. TECHNIQUE: Figueroa scale, color and spectral Doppler were used. COMPARISON: No exams were available for comparison FINDINGS: Renal size in cm: Right: 9.5 left: 9.6 Echogenicity: Normal Hydronephrosis: No Cyst or mass: No Nephrolithiasis: No Other findings: None Bladder:Not well evaluated due to low urine volume. L Prevoid vol: 3 cc Postvoid vol: IMPRESSION: Negative renal ultrasound. The bladder was not well evaluated. DATA REPOSITORY:
== END 2019-12-28 02:53 ==
PROVIDERS: PCP Nurse Practitioner; Visit Provider Internal Medicine Nephrology
DX: N18.3 Chronic kidney disease, stage 3 (moderate) (principal); R79.89 Other specified abnormal findings of blood chemistry
CPT/HCPCS: 76770

== ENCOUNTER 2019-12-28 03:19 | Outpatient (CLI) | payer MEDICARE, OTHER, SELFPAY ==
[2019-12-28 09:25] LABS: Abs Immature Grans 0.02 k/cumm (0.0-0.09); Absolute Basophil Count 0.05 k/cumm (0.0-0.2); Absolute Eosinophil Count 0.25 k/cumm (0.0-0.7); Absolute Monocyte Count 0.61 k/cumm (0.11-0.7); Absolute Neutrophil Count 2.27 k/cumm (1.2-6.7); Basophils % 0.9; Eosinophils % 4.5; HCT 39.1 % (36.0-46.0); HGB 12.5 g/dL (12.0-15.5); Immature Grans % 0.4 %; Lymphocytes % 41.8; Mean Corpuscular Hemoglobin 32.6 pg (27.0-33.0); Mean Corpuscular Volume 101.8 fL (80-95); Mean Platelet Volume 9.7 fL (8.0-11.0); Monocytes % 11.1; Neutrophils % 41.3; Platelet Count 289 x1000/uL (130-400); RBC 3.84 m/cumm (4.00-5.20); RBC Distribution Width 12.9 % (11.7-14.6)
[2019-12-28 10:04] LABS: ESR 15 mm/hr (0-30)
[2019-12-28 10:18] LABS: ALT 20 U/L (14-59); AST 20 U/L (15-37); Albumin 4.1 g/dL (3.4-5.0); Alkaline Phosphatase 58 U/L (46-116); Anion Gap 8.4 mmol/L (3-11); BUN 20 mg/dL (7-18); Bilirubin, Total 0.5 mg/dL (0.2-1.0); C-Reactive Protein < 0.05 mg/dL (0.0-0.3); CO2 29.6 mmol/L (21.0-32.0); CREATININE 1.88 mg/dL (0.55-1.02); Calcium 10.2 mg/dL (8.5-10.1); Chloride 101 mmol/L (98-107); Estimated GFR 25.88 (mL/min/1.73m2); Glucose 99 mg/dL (74-106); PHOSPHORUS 4.4 mg/dL (2.6-4.7); Potassium 4.4 mmol/L (3.5-5.1); Sodium 139 mmol/L (136-145); Total Protein 7.4 g/dL (6.4-8.2)
== END 2019-12-28 03:39 ==
PROVIDERS: PCP Nurse Practitioner; Visit Provider Internal Medicine
DX: M05.9 Rheumatoid arthritis with rheumatoid factor, unspecified (principal); M81.0 Age-related osteoporosis without current pathological fracture; N18.3 Chronic kidney disease, stage 3 (moderate); R79.89 Other specified abnormal findings of blood chemistry
CPT/HCPCS: 36415; 76770; 80053; 85652; 83735; 84100; 85025; 86140

== ENCOUNTER 2020-02-10 03:58 | Outpatient (RCR) | payer MEDICARE, OTHER, SELFPAY ==
[2020-02-03 10:19] LABS: PHOSPHORUS 4.1 mg/dL (2.6-4.7)
[2020-02-10] MEDS: Denosumab 60 MG/ML SYR SC (10:02)
== END 2020-02-10 23:59 | disposition home or self-care (01) ==
LOC: INF 03:58
PROVIDERS: Internal Medicine; PCP Nurse Practitioner; Visit Provider Nurse Practitioner
DX: M81.0 Age-related osteoporosis without current pathological fracture (principal); Z79.899 Other long term (current) drug therapy
CPT/HCPCS: 36415; 96372; 82310; 83735; 84100; J0897

== ENCOUNTER 2020-07-17 03:09 | Outpatient (CLI) | payer MEDICARE, OTHER, SELFPAY ==
[2020-07-17 11:08] LABS: Abs Immature Grans 0.02 10^3/uL (0.0-0.06); Absolute Basophil Count 0.06 10^3/uL (0.0-0.2); Absolute Eosinophil Count 0.17 10^3/uL (0.0-0.7); Absolute Lymphocyte Count 1.85 10^3/uL (1.2-3.4); Absolute Monocyte Count 0.59 10^3/uL (0.1-0.8); Absolute Neutrophil Count 2.85 10^3/uL (1.2-6.7); Basophils % 1.1; Eosinophils % 3.1; HCT 38.9 % (36.0-46.0); HGB 12.3 g/dL (11.2-15.7); Immature Grans % 0.4; Lymphocytes % 33.4; MCH 31.5 pg (27.0-33.0); MCHC 31.6 % (32.0-36.0); MCV 99.7 fL (80-95); MPV 9.7 fL (8.0-11.0); Monocytes % 10.6; Neutrophils % 51.4; Nucleated RBC 0 %; Platelet Count 270 10^3/uL (130-400); RDW 13.4 % (11.7-14.6); RDW-SD 49.1 fL; WBC 5.54 10^3/uL (4.4-10.8)
[2020-07-17 11:54] LABS: ESR 15 mm/hr (0-30)
[2020-07-17 11:58] LABS: ALT 20 U/L (14-59); AST 20 U/L (15-37); Alkaline Phosphatase 54 U/L (46-116); Anion Gap 8.3 mmol/L (3-11); BUN 17 mg/dL (7-18); Bilirubin, Total 0.5 mg/dL (0.2-1.0); CO2 26.7 mmol/L (21.0-32.0); CREATININE 1.85 mg/dL (0.55-1.02); Calcium 9.5 mg/dL (8.5-10.1); Chloride 103 mmol/L (98-107); Glucose 88 mg/dL (74-106); Magnesium 1.9 mg/dL (1.8-2.4); PHOSPHORUS 3.7 mg/dL (2.6-4.7); Potassium 4.2 mmol/L (3.5-5.1); Sodium 138 mmol/L (136-145); Total Protein 7.2 g/dL (6.4-8.2); Uric Acid 7.3 mg/dL (2.6-6.0)
[2020-07-17 11:59] LABS: C-Reactive Protein < 0.05 mg/dL (0.0-0.3)
[2020-07-17 12:21] LABS: Vitamin B12 949 pg/mL (193-986)
[2020-07-17 12:23] LABS: COMMENT (LAB VIEW ONLY) 379.83 mg/dL
[2020-07-17 12:53] LABS: Microalb ug/mg Crea 9.6 ug/mg Cr
[2020-07-18 11:29] LABS: Parathyroid Hormone,Intact 118 pg/mL (19-88)
[2020-07-18 12:57] LABS: Total Protein 7.3 g/dL (6.3-8.2)
== END 2020-07-17 03:29 ==
PROVIDERS: PCP Nurse Practitioner; Visit Provider Internal Medicine Nephrology
DX: M05.9 Rheumatoid arthritis with rheumatoid factor, unspecified (principal); M81.0 Age-related osteoporosis without current pathological fracture; N18.4 Chronic kidney disease, stage 4 (severe)
CPT/HCPCS: 36415; 80053; 84156; 84166; 85652; 86335; 82043; 82570; 82607; 83735; 83970; 84100; 84165; 84550; 85025; 86140

== ENCOUNTER 2020-09-28 02:27 | Outpatient (CLI) | payer MEDICARE, OTHER, SELFPAY ==
[2020-09-28 10:35] LABS: Abs Immature Grans 0.02 10^3/uL (0.0-0.06); Absolute Basophil Count 0.09 10^3/uL (0.0-0.2); Absolute Eosinophil Count 0.16 10^3/uL (0.0-0.7); Absolute Lymphocyte Count 1.86 10^3/uL (1.2-3.4); Absolute Neutrophil Count 2.65 10^3/uL (1.2-6.7); Basophils % 1.7; HCT 37.4 % (36.0-46.0); Immature Grans % 0.4; Lymphocytes % 34.6; MCH 32.2 pg (27.0-33.0); MCHC 32.1 % (32.0-36.0); MCV 100.3 fL (80-95); MPV 9.5 fL (8.0-11.0); Monocytes % 11.2; Neutrophils % 49.1; Nucleated RBC 0 %; Platelet Count 221 10^3/uL (130-400); RBC 3.73 10^6/uL (3.93-5.22); RDW 13.1 % (11.7-14.6); RDW-SD 48.5 fL; WBC 5.38 10^3/uL (4.4-10.8)
[2020-09-28 11:20] LABS: Calcium 10.2 mg/dL (8.5-10.1)
[2020-09-28 11:33] LABS: ALT 20 U/L (14-59); AST 21 U/L (15-37); Albumin 3.9 g/dL (3.4-5.0); Alkaline Phosphatase 66 U/L (46-116); Anion Gap 8.2 mmol/L (3-11); BUN 14 mg/dL (7-18); Bilirubin, Total 0.5 mg/dL (0.2-1.0); CO2 29.8 mmol/L (21.0-32.0); CREATININE 1.9 mg/dL (0.55-1.02); Calcium 10.9 mg/dL (8.5-10.1); Chloride 101 mmol/L (98-107); Glucose 92 mg/dL (74-106); PHOSPHORUS 3.7 mg/dL (2.6-4.7); Potassium 4.2 mmol/L (3.5-5.1); Sodium 139 mmol/L (136-145); Total Protein 7.2 g/dL (6.4-8.2)
[2020-09-28 11:54] LABS: C-Reactive Protein < 0.05 mg/dL (0.0-0.3)
[2020-09-28 19:29] LABS: ESR 21 mm/hr (<or=30)
[2020-10-01 05:27] LABS: Vitamin D 25 Total 72.2 ng/ml (30-100)
[2020-10-03 15:42] LABS: PTH-Related Peptide 1.6 pmol/L (< or = 4.2)
== END 2020-09-28 02:28 | disposition home or self-care (01) ==
LOC: LBO 02:27
PROVIDERS: Internal Medicine; PCP Nurse Practitioner; Visit Provider Nurse Practitioner
DX: M81.0 Age-related osteoporosis without current pathological fracture (principal); M05.9 Rheumatoid arthritis with rheumatoid factor, unspecified; R79.9 Abnormal finding of blood chemistry, unspecified; N18.9 Chronic kidney disease, unspecified
CPT/HCPCS: 36415; 80053; 82306; 85652; 82310; 82397; 83735; 84100; 85025; 86140

== ENCOUNTER 2020-11-12 13:12 | Outpatient (REF) | payer MEDICARE, OTHER, SELFPAY ==
[2020-11-13 08:59] LABS: Calcium Urine 7.5 mg/dL (See Note); Calcium Urine 24 hr 75 mg/24hrs (100-300); Timed Urine Volume 1000 mL
== END 2020-11-12 13:13 | disposition home or self-care (01) ==
LOC: LBN 13:12
PROVIDERS: PCP Nurse Practitioner; Visit Provider Internal Medicine Endocrinology, Diabetes & Metabolism
DX: M80.00XD Age-related osteoporosis with current pathological fracture, unspecified site, subsequent encounter for fracture with routine healing (principal)
CPT/HCPCS: 81050; 82340

== ENCOUNTER 2020-11-30 04:43 | Outpatient (RCR) | payer MEDICARE, OTHER, SELFPAY ==
[2020-11-30] MEDS: Denosumab 60 MG/ML SYR SC (09:59)
== END 2020-12-10 23:59 | disposition home or self-care (01) ==
LOC: INF 04:43
PROVIDERS: PCP Nurse Practitioner; Visit Provider Nurse Practitioner Acute Care
DX: M81.0 Age-related osteoporosis without current pathological fracture (principal)
CPT/HCPCS: 96372; J0897

== ENCOUNTER 2021-01-09 03:01 | Outpatient (CLI) | payer MEDICARE, OTHER, SELFPAY ==
[2021-01-09 11:01] LABS: Anion Gap 6.8 mmol/L (3-11); BUN 20 mg/dL (7-18); CO2 28.2 mmol/L (21.0-32.0); CREATININE 1.8 mg/dL (0.55-1.02); Calcium 9.8 mg/dL (8.5-10.1); Chloride 101 mmol/L (98-107); Estimated GFR 27.14 (mL/min/1.73m2); Glucose 94 mg/dL (74-106); Potassium 4.5 mmol/L (3.5-5.1); Sodium 136 mmol/L (136-145)
[2021-01-10 11:24] LABS: Parathyroid Hormone,Intact 62 pg/mL (19-88)
== END 2021-01-09 03:02 | disposition home or self-care (01) ==
LOC: LBO 03:10
PROVIDERS: PCP Nurse Practitioner; Visit Provider Internal Medicine Endocrinology, Diabetes & Metabolism
DX: M80.00XD Age-related osteoporosis with current pathological fracture, unspecified site, subsequent encounter for fracture with routine healing (principal); F41.9 Anxiety disorder, unspecified
CPT/HCPCS: 36415; 80048; 83970

== ENCOUNTER 2021-01-09 17:58 | Outpatient (REF) | payer MEDICARE, OTHER, SELFPAY ==
[2021-01-09 10:55] LABS: Creatinine,Urine 44.22 mg/dL
[2021-01-09 10:59] LABS: Creatinine,24hr Ur 0.62 g/24hr (0.60-1.80); Total Volume 1475 ml
[2021-01-10 08:56] LABS: Calcium Urine 24 hr 74 mg/24hrs (100-300); Timed Urine Volume 1475 mL
== END 2021-01-09 17:59 | disposition home or self-care (01) ==
LOC: LBN 17:58
PROVIDERS: PCP Nurse Practitioner; Visit Provider Internal Medicine Endocrinology, Diabetes & Metabolism
DX: M80.00XD Age-related osteoporosis with current pathological fracture, unspecified site, subsequent encounter for fracture with routine healing (principal); E83.59 Other disorders of calcium metabolism
CPT/HCPCS: 81050; 82340; 82570

== ENCOUNTER 2021-01-09 18:03 | Outpatient (REF) | payer MEDICARE, OTHER, SELFPAY | END 2021-01-09 18:04 | disposition home or self-care (01) | LOC: LBN 18:03 | PROVIDERS: PCP Nurse Practitioner; Visit Provider Internal Medicine Endocrinology, Diabetes & Metabolism | DX: R69 Illness, unspecified (principal) ==

== ENCOUNTER 2021-02-19 03:23 | Outpatient (CLI) | payer MEDICARE, OTHER, SELFPAY ==
[2021-02-19 14:35] LABS: Calculated LDL 66 mg/dL (<100); Cholesterol 155 mg/dL (<200); HDL Cholesterol 75 mg/dL (40-60); TSH (W/Ref FT4) 1.17 uIU/mL (0.36-3.74); Triglyceride 72 mg/dL (<150)
== END 2021-02-19 03:24 | disposition home or self-care (01) ==
LOC: LBO 03:23
PROVIDERS: PCP Nurse Practitioner; Visit Provider Nurse Practitioner
DX: E03.9 Hypothyroidism, unspecified (principal); E78.00 Pure hypercholesterolemia, unspecified
CPT/HCPCS: 36415; 80061; 84443

== ENCOUNTER 2021-03-11 03:45 | Outpatient (CLI) | payer MEDICARE, OTHER, SELFPAY ==
[2021-03-11 08:26] LABS: ESR 7 mm/hr (0-30)
[2021-03-11 08:27] LABS: Abs Immature Grans 0.03 10^3/uL (0.0-0.06); Absolute Basophil Count 0.08 10^3/uL (0.0-0.2); Absolute Eosinophil Count 0.18 10^3/uL (0.0-0.7); Absolute Lymphocyte Count 2.15 10^3/uL (1.2-3.4); Absolute Monocyte Count 0.57 10^3/uL (0.1-0.8); Absolute Neutrophil Count 2.05 10^3/uL (1.2-6.7); Basophils % 1.6; Eosinophils % 3.6; HCT 35.9 % (36.0-46.0); HGB 11.4 g/dL (11.2-15.7); Immature Grans % 0.6; Lymphocytes % 42.5; MCH 31.7 pg (27.0-33.0); MCHC 31.8 % (32.0-36.0); MCV 99.7 fL (80-95); MPV 9.1 fL (8.0-11.0); Monocytes % 11.3; Neutrophils % 40.4; Nucleated RBC 0 %; Platelet Count 268 10^3/uL (130-400); RDW 13.3 % (11.7-14.6); RDW-SD 49.1 fL; WBC 5.06 10^3/uL (4.4-10.8)
[2021-03-11 09:54] LABS: ALT 22 U/L (14-59); AST 18 U/L (15-37); Alkaline Phosphatase 50 U/L (46-116); Anion Gap 10.5 mmol/L (3-11); BUN 14 mg/dL (7-18); Bilirubin, Total 0.4 mg/dL (0.2-1.0); C-Reactive Protein < 0.05 mg/dL (0.0-0.3); CO2 26.5 mmol/L (21.0-32.0); CREATININE 1.7 mg/dL (0.55-1.02); Calcium 9.6 mg/dL (8.5-10.1); Chloride 103 mmol/L (98-107); Estimated GFR 28.99 (mL/min/1.73m2); Glucose 87 mg/dL (74-106); Potassium 4.5 mmol/L (3.5-5.1); Sodium 140 mmol/L (136-145)
== END 2021-03-11 03:46 | disposition home or self-care (01) ==
LOC: LBO 03:45
PROVIDERS: PCP Nurse Practitioner; Visit Provider Internal Medicine
DX: M05.9 Rheumatoid arthritis with rheumatoid factor, unspecified (principal); R79.9 Abnormal finding of blood chemistry, unspecified; Z79.899 Other long term (current) drug therapy; Z51.81 Encounter for therapeutic drug level monitoring
CPT/HCPCS: 36415; 80053; 85652; 85025; 86140

== ENCOUNTER 2021-05-16 10:10 | Outpatient (CLI) | payer MEDICARE, OTHER, SELFPAY ==
--- NOTE | 2021-05-16 13:18 | DI.RAD_ITS ---
Exam(s) XR FOOT RT COMPLETE EXAM: XR FOOT RT COMPLETE CLINICAL HISTORY: right foot pain and bruising after dancing, M79.671. TECHNIQUE: 2D digital imaging was performed. COMPARISON: CR RIGHT ANKLE COMPLETE from 01/20/2018 CR RIGHT ANKLE COMPLETE from 01/20/2018 FINDINGS: Again noted is fixation plate in distal fibula which extends to the tip of the lateral malleolus. No obvious hardware loosening nor radiographic evidence of osteomyelitis. There is generalized osteopenia in the foot. 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 No other bone resections evident. No evidence of osteomyelitis. No erosions. No obvious deg enerative changes in the articulations. There is an element of hallux valgus. No diastasis of the L isfranc joint. No obvious stress fractures. No pes planus. No inferior calcaneal spur. IMPRESSION: DATA REPOSITORY: RADIATION DOSE DELIVERED:
== END 2021-05-16 10:30 ==
PROVIDERS: PCP Nurse Practitioner; Visit Provider Nurse Practitioner
DX: M79.671 Pain in right foot (principal); M20.11 Hallux valgus (acquired), right foot; M85.871 Other specified disorders of bone density and structure, right ankle and foot
CPT/HCPCS: 73630

== ENCOUNTER 2021-06-10 01:44 | Outpatient (RCR) | payer MEDICARE, OTHER, SELFPAY ==
[2021-06-10] MEDS: Denosumab 60 MG/ML SYR SC (13:05)
== END 2021-06-11 23:59 | disposition home or self-care (01) ==
LOC: INF 01:44
PROVIDERS: PCP Nurse Practitioner; Visit Provider Nurse Practitioner Acute Care
DX: M81.0 Age-related osteoporosis without current pathological fracture (principal)
CPT/HCPCS: 96372; J0897

== ENCOUNTER 2021-07-15 02:46 | Outpatient (CLI) | payer MEDICARE, OTHER, SELFPAY ==
[2021-07-15 10:47] LABS: ESR 10 mm/hr (0-30)
[2021-07-15 10:48] LABS: Abs Immature Grans 0.02 10^3/uL (0.0-0.06); Absolute Basophil Count 0.09 10^3/uL (0.0-0.2); Absolute Eosinophil Count 0.25 10^3/uL (0.0-0.7); Absolute Lymphocyte Count 2.16 10^3/uL (1.2-3.4); Absolute Monocyte Count 0.55 10^3/uL (0.1-0.8); Absolute Neutrophil Count 2.11 10^3/uL (1.2-6.7); Basophils % 1.7; Eosinophils % 4.8; HCT 38.5 % (36.0-46.0); HGB 12.2 g/dL (11.2-15.7); Immature Grans % 0.4; Lymphocytes % 41.7; MCH 31.7 pg (27.0-33.0); MCHC 31.7 % (32.0-36.0); MPV 9.3 fL (8.0-11.0); Monocytes % 10.6; Neutrophils % 40.8; Nucleated RBC 0 %; Platelet Count 256 10^3/uL (130-400); RBC 3.85 10^6/uL (3.93-5.22); RDW 13.2 % (11.7-14.6); RDW-SD 48.8 fL; WBC 5.18 10^3/uL (4.4-10.8)
[2021-07-15 12:42] LABS: ALT 18 U/L (14-59); AST 19 U/L (15-37); Albumin 3.9 g/dL (3.4-5.0); Alkaline Phosphatase 55 U/L (46-116); Anion Gap 6.8 mmol/L (3-11); BUN 16 mg/dL (7-18); Bilirubin, Direct 0.1 mg/dL (0.0-0.2); Bilirubin, Total 0.4 mg/dL (0.2-1.0); CO2 29.2 mmol/L (21.0-32.0); CREATININE 1.8 mg/dL (0.55-1.02); Calcium 9.7 mg/dL (8.5-10.1); Chloride 103 mmol/L (98-107); Estimated GFR 27.07 (mL/min/1.73m2); Glucose 98 mg/dL (74-106); Potassium 4.7 mmol/L (3.5-5.1); Sodium 139 mmol/L (136-145); Total Protein 7.3 g/dL (6.4-8.2)
[2021-07-15 12:46] LABS: C-Reactive Protein < 0.05 mg/dL (0.0-0.3)
== END 2021-07-15 02:47 | disposition home or self-care (01) ==
PROVIDERS: PCP Nurse Practitioner; Visit Provider Internal Medicine
DX: Z79.899 Other long term (current) drug therapy (principal); M05.9 Rheumatoid arthritis with rheumatoid factor, unspecified; R79.9 Abnormal finding of blood chemistry, unspecified; Z51.81 Encounter for therapeutic drug level monitoring
CPT/HCPCS: 36415; 80053; 80076; 85652; 85025; 86140

== ENCOUNTER 2021-10-16 02:45 | Outpatient (CLI) | payer MEDICARE, OTHER, SELFPAY ==
[2021-10-16 10:42] LABS: Abs Immature Grans 0.01 10^3/uL (0.0-0.06); Absolute Basophil Count 0.06 10^3/uL (0.0-0.2); Absolute Eosinophil Count 0.18 10^3/uL (0.0-0.7); Absolute Lymphocyte Count 1.97 10^3/uL (1.2-3.4); Absolute Monocyte Count 0.62 10^3/uL (0.1-0.8); Absolute Neutrophil Count 2.24 10^3/uL (1.2-6.7); Basophils % 1.2; ESR 9 mm/hr (0-30); Eosinophils % 3.5; HCT 37.6 % (36.0-46.0); Immature Grans % 0.2; Lymphocytes % 38.8; MCH 31.4 pg (27.0-33.0); MCHC 31.9 % (32.0-36.0); MCV 98.4 fL (80-95); MPV 9.6 fL (8.0-11.0); Monocytes % 12.2; Neutrophils % 44.1; Nucleated RBC 0 %; Platelet Count 248 10^3/uL (130-400); RBC 3.82 10^6/uL (3.93-5.22); RDW 13.4 % (11.7-14.6); RDW-SD 48.9 fL; WBC 5.08 10^3/uL (4.4-10.8)
[2021-10-16 11:25] LABS: ALT 17 U/L (14-59); AST 16 U/L (15-37); Albumin 4.1 g/dL (3.4-5.0); Alkaline Phosphatase 56 U/L (46-116); BUN 19 mg/dL (7-18); Bilirubin, Direct 0.1 mg/dL (0.0-0.2); Bilirubin, Total 0.6 mg/dL (0.2-1.0); CREATININE 1.7 mg/dL (0.55-1.02); Calcium 9.8 mg/dL (8.5-10.1); Chloride 101 mmol/L (98-107); Estimated GFR 28.92 (mL/min/1.73m2); Glucose 103 mg/dL (74-106); Potassium 4.3 mmol/L (3.5-5.1); Sodium 137 mmol/L (136-145); Total Protein 7.5 g/dL (6.4-8.2)
[2021-10-16 11:26] LABS: C-Reactive Protein < 0.05 mg/dL (0.0-0.3)
[2021-10-16 21:47] LABS: Rheumatoid Factor 11.5 IU/mL (<12.0)
[2021-10-17 09:34] LABS: C3 Complement 107 mg/dL (81-157); C4 Complement 21 mg/dL (13-39)
[2021-10-18 13:04] LABS: Cryoglobulin, S Negative %ppt (Negative)
== END 2021-10-16 02:46 | disposition home or self-care (01) ==
LOC: LBO 02:51
PROVIDERS: PCP Nurse Practitioner; Visit Provider Internal Medicine
DX: N18.9 Chronic kidney disease, unspecified (principal); M05.9 Rheumatoid arthritis with rheumatoid factor, unspecified; Z79.899 Other long term (current) drug therapy; Z51.81 Encounter for therapeutic drug level monitoring
CPT/HCPCS: 36415; 80053; 80076; 85652; 82595; 85025; 86140; 86160; 86431

== ENCOUNTER 2021-12-11 03:26 | Outpatient (RCR) | payer MEDICARE, OTHER, SELFPAY ==
[2021-12-11] MEDS: Denosumab 60 MG/ML SYR SC (13:02)
== END 2022-01-09 23:59 | disposition home or self-care (01) ==
LOC: INF 03:26
PROVIDERS: PCP Nurse Practitioner; Visit Provider Nurse Practitioner Acute Care
DX: M81.0 Age-related osteoporosis without current pathological fracture (principal)
CPT/HCPCS: 96372; J0897

== ENCOUNTER 2022-02-06 03:00 | Outpatient (CLI) | payer MEDICARE, OTHER, SELFPAY ==
[2022-02-06 09:03] LABS: ESR 10 mm/hr (0-30)
[2022-02-06 09:52] LABS: ALT 19 U/L (14-59); AST 20 U/L (15-37); Albumin 3.6 g/dL (3.4-5.0); Alkaline Phosphatase 53 U/L (46-116); Anion Gap 5.4 mmol/L (3-11); BUN 14 mg/dL (7-18); Bilirubin, Total 0.4 mg/dL (0.2-1.0); CO2 27.6 mmol/L (21.0-32.0); CREATININE 1.7 mg/dL (0.55-1.02); Calcium 9.1 mg/dL (8.5-10.1); Chloride 101 mmol/L (98-107); Estimated GFR 28.92 (mL/min/1.73m2); Glucose 94 mg/dL (74-106); Potassium 4.4 mmol/L (3.5-5.1); Sodium 134 mmol/L (136-145); Total Protein 7.2 g/dL (6.4-8.2)
[2022-02-06 09:58] LABS: C-Reactive Protein < 0.05 mg/dL (0.0-0.3)
[2022-02-06 09:59] LABS: Calculated LDL 83 mg/dL (<100); Cholesterol 155 mg/dL (<200); HDL Cholesterol 63 mg/dL (40-60); TSH (W/Ref FT4) 3.23 uIU/mL (0.36-3.74); Triglyceride 49 mg/dL (<150)
[2022-02-06 11:57] LABS: Abs Immature Grans 0.05 10^3/uL (0.0-0.06); Absolute Basophil Count 0.09 10^3/uL (0.0-0.2); Absolute Eosinophil Count 0.22 10^3/uL (0.0-0.7); Absolute Lymphocyte Count 2.26 10^3/uL (1.2-3.4); Absolute Monocyte Count 0.84 10^3/uL (0.1-0.8); Absolute Neutrophil Count 1.84 10^3/uL (1.2-6.7); Basophils % 1.7; Eosinophils % 4.2; HCT 34.3 % (36.0-46.0); HGB 11.2 g/dL (11.2-15.7); Immature Grans % 0.9; Lymphocytes % 42.6; MCH 31.8 pg (27.0-33.0); MCHC 32.7 % (32.0-36.0); MCV 97 fL (80-95); MPV 9.5 fL (8.0-11.0); Monocytes % 15.8; Neutrophils % 34.8; Platelet Count 350 10^3/uL (130-400); RBC 3.52 10^6/uL (3.93-5.22); RDW 12.9 % (11.7-14.6); RDW-SD 46.2 fL
== END 2022-02-06 03:01 | disposition home or self-care (01) ==
LOC: LBO 03:00
PROVIDERS: Internal Medicine; PCP Nurse Practitioner; Visit Provider Nurse Practitioner
DX: E03.9 Hypothyroidism, unspecified (principal); E78.00 Pure hypercholesterolemia, unspecified; I10 Essential (primary) hypertension; N18.30 Chronic kidney disease, stage 3 unspecified; Z79.899 Other long term (current) drug therapy
CPT/HCPCS: 36415; 80053; 80061; 85652; 84443; 85025; 86140

== ENCOUNTER → 2022-02-18 21:51 | Outpatient (CLI) | payer MEDICARE, OTHER, SELFPAY ==
--- NOTE | 2022-02-18 14:58 | DI.RAD_ITS ---
Exam(s) XR SHOULDER RT COMPLETE 2+V EXAM: XR SHOULDER RT COMPLETE 2+V CLINICAL HISTORY: RIGHT SHOULDER PAIN-M25.511, FREQUENT FALLS-R29.6. TECHNIQUE: 2D digital imaging was performed. Five views. COMPARISON: No exams were available for comparison FINDINGS: BONES: No acute fracture is present. No bony destructive lesion is seen. JOINTS: No dislocation present. There is spurring at the AC joint and tip of the acromion. Glenohum eral joint space is well maintained. There is mild spurring at the glenohumeral joint. SOFT TISSUE: Normal. IMPRESSION: Degenerative changes. No acute abnormality. DATA REPOSITORY: RADIATION DOSE DELIVERED:
== END ==
PROVIDERS: PCP Nurse Practitioner; Visit Provider Nurse Practitioner Family
DX: M25.711 Osteophyte, right shoulder (principal)
CPT/HCPCS: 73030

== ENCOUNTER 2022-02-25 14:17 | Emergency (ER) | payer MEDICARE, OTHER, SELFPAY ==
[2022-02-25 14:17] VITALS: BP 133/90; PULSE 110; RESP 18; TEMP 36.2; O2SAT 98
--- NOTE | 2022-02-25 15:30 | DI.RAD_ITS ---
Exam(s) XR RIBS RT W PA LAT CHEST EXAM: XR RIBS RT W PA LAT CHEST CLINICAL HISTORY: Fall 1 week ago, rib pain TECHNIQUE: 2D digital imaging was performed. COMPARISON: No exams were available for comparison FINDINGS: RIBS 3 VIEWS-RIGHT There are no acute rib fractures evident. No lytic rib lesions identified. CXR- 2 VIEWS: No lung contusion or pneumothorax. There is no pleural effusion evident. Heart size is normal and there is no significant mediastinal widening. IMPRESSION: 1. No rib fractures evident. Also no obvious rib lesions. 2. No ipsilateral lung nor pleural abnormality evident. No pneumothorax. DATA REPOSITORY: RADIATION DOSE DELIVERED:
[2022-02-25 15:34] VITALS: BP 126/84; PULSE 94; O2SAT 94
--- NOTE | 2022-02-25 16:13 | W.ED.GENAD ---
Discharge Plan Disposition Patient Disposition: HOME Condition: Stable Discharge Details Clinical Impression: Chest wall pain Primary Care Provider: Inge Stiles ED Provider: Zulma Pierce Home Meds and New Rx's Prescriptions: Continued cbd oil topical calcium citrate-vitamin D3 200 mg-6.25 mcg (250 unit) tablet 2 tab PO DAILY atorvastatin [Lipitor] 20 mg tablet 20 mg PO HS Qty: 90 3RF levothyroxine 75 mcg tablet 75 mcg PO DAILY Qty: 90 3RF trazodone 150 mg tablet See Rx Instructions PO HS Qty: 135 3RF Rx Instructions: 1-1.5 tabs PO bedtime; cholecalciferol (vitamin D3) 5,000 UNIT tablet 5,000 unit PO DAILY Prolia 60 MG/1 ML syringe 60 mg SQ .Q 6 MONTHS tumeric PO Label Comments: 2 am, 2 pm. omega-3 fatty acids [Fish Oil Concentrate] 1,000 mg capsule 1,000 mg PO TID Label Comments: 1 am, 2 pm sulfasalazine [Azulfidine] 500 mg tablet 500 mg PO DAILY Label Comments: 11/11/17 Decrease to one tablet daily if inflammation levels are normal. mk sertraline 50 mg tablet 50 mg PO DAILY Qty: 30 0RF coenzyme Q10 [Co Q-10] 100 MG capsule 100 mg PO DAILY hydroxychloroquine 200 mg tablet 300 mg PO DAILY Rx Instructions: 04/2020 Dr Whitfield [facility] [place] increased to 300mg daily. cgc Discharge Instructions Instructions: Chest Wall Pain (ED) Additional Instructions: X-ray showed no evidence for rib fractures. No collapsed lung or pneumonia. Please take the oxycodone twice daily as needed for moderate to severe pain. Please take this with food. Do not drive or operate heavy machinery while on this medication. Follow up with primary care provider in 3-5 days. Return to ED sooner if any worsening or concerns. Increase oral fluids. Please take Tylenol with food every 4-6 hours as needed for pain and swelling. You may also try lidocaine patches which you can get [id number]. Referrals: Inge Stiles, [employer] [Primary Care Provider] - 3 days Medical Decision Making 81-year-old female presents with right anterior chest wall pain which is worse with movement and breathing status post mechanical fall 1 week ago. Patient reports she woke up this morning with acute increasing pain. She has been taking Tylenol ibuprofen with little relief. X-ray right ordered, oxycodone 5 mg ordered. Patient increased work of breathing. Lung sounds clear to auscultation bilaterally. X-ray shows no acute rib fractures or pneumothorax no pleural abnormality evident. Discussed x-ray results with patient who verbalized understanding. Discussed strict return instructions and home care. This text was generated using [employer] dictation system, please disregard any oddities of phrase or misspellings. Medical Records Medical records reviewed: Yes I reviewed the patient's medical records. Imaging Data Radiologic Study: Imaging: X-Ray Radiologist's impression: EXAM: XR RIBS RT W PA LAT CHEST CLINICAL HISTORY: Fall 1 week ago, rib pain TECHNIQUE: 2D digital imaging was performed. COMPARISON: No exams were available for comparison FINDINGS: RIBS 3 VIEWS-RIGHT There are no acute rib fractures evident. No lytic rib lesions identified. CXR- 2 VIEWS: No lung contusion or pneumothorax. There is no pleural effusion evident. Heart size is normal and there is no significant mediastinal widening. HPI General Mode of arrival: ambulatory. Date/Time Provider Initiated Documentation: 02/25/22 14:30. Limitations to Documentation: no limitations. Information obtained by: patient, RN notes reviewed and old records reviewed. HPI Narrative: History of depression, chronic kidney Is a CVA, presents to the ER with chief complaint of right. Rib pain. Patient reports she had a mechanical fall approximately 1 week ago where she tripped and fell against a wall. Denies losing consciousness or hitting her head. She reports she was seen in urgent care and had x-rays at that time there fractures. She presents today with increased pain to the right breast and right upper anterior chest wall upon wakening. She reports when she sneezes or coughs she has increased pain. She has been taking Tylenol and ibuprofen for the pain. No other complaints or associated signs or symptoms. Related Data Home Medications Medication Instructions Recorded Confirmed coenzyme Q10 100 mg capsule (Co 100 mg PO DAILY 04/14/17 01/21/22 Q-10) cholecalciferol (vitamin D3) 125 5,000 unit PO DAILY 11/18/17 01/21/22 mcg (5,000 unit) tablet denosumab 60 mg/mL subcutaneous 60 mg SQ .Q 6 MONTHS 01/20/18 01/21/22 syringe (Prolia) omega-3 fatty acids 1,000 mg 1,000 mg PO TID 04/25/19 01/21/22 capsule (Fish Oil Concentrate) sulfasalazine 500 mg tablet 500 mg PO DAILY 04/25/19 01/21/22 (Azulfidine) tumeric PO 04/25/19 01/21/22 hydroxychloroquine 200 mg tablet 300 mg PO DAILY 06/20/20 01/21/22 calcium citrate 200 mg 2 tab PO DAILY 05/16/21 01/21/22 calcium-vitamin D3 6.25 mcg (250 unit) tablet cbd oil topical 05/16/21 01/21/22 sertraline 50 mg tablet 50 mg PO DAILY #30 tabs 10/07/21 01/21/22 atorvastatin 20 mg tablet (Lipitor) 20 mg PO HS #90 tab-caps 02/11/22 02/11/22 levothyroxine 75 mcg tablet 75 mcg PO DAILY #90 tab-caps 02/11/22 02/11/22 trazodone 150 mg tablet See Rx Instructions PO HS #135 02/11/22 02/25/22 tab-caps Previous Rx's Medication Instructions Recorded sertraline 50 mg tablet 50 mg PO DAILY #30 tabs 10/07/21 atorvastatin 20 mg tablet (Lipitor) 20 mg PO HS #90 tab-caps 02/11/22 levothyroxine 75 mcg tablet 75 mcg PO DAILY #90 tab-caps 02/11/22 trazodone 150 mg tablet See Rx Instructions PO HS #135 02/11/22 tab-caps Allergies Allergy/AdvReac Type Severity Reaction Status Date / Time amitriptyline HCl AdvReac Severe Excessive Verified 02/11/22 09:32 [From Elavil] tiredness, sleeping doxycycline AdvReac Severe Excessive Verified 02/11/22 09:32 tiredness, sleeping General Stated Complaint: Chest/Rib GLORIA: 3 Review of Systems All systems reviewed & are unremarkable except as noted in HPI and below Cardiovascular Cardiovascular: Reports as per HPI Comments: Right anterior chest wall pain, worse with movement and deep breathing. Musculoskeletal Comments: Small contusion noted right breast PFSH All Active Problems (Updated 02/25/22 @ 16:22 by Zulma Pierce NP) Chest wall pain (Acute) Osteoporosis (Chronic ~01/2022) 01/20/22 Dr Whitfield Seropositive rheumatoid arthritis (Acute) 10/21/21 [facility] [place] Rheumatology note Abnormal finding of blood chemistry, unspecified (Acute) 07/18/21 [facility] [place] Rheumatology note High cholesterol (Chronic) Hypothyroidism (Chronic) Weight loss (Acute) Visit for suture removal (Acute) Medicare annual wellness visit, subsequent (Acute) Memory change (Acute) Depression (Chronic 10/13/17) Anxiety (Chronic) Headache (Acute) Dizziness (Acute) CKD (chronic kidney disease) stage 3, GFR 30-59 ml/min (Chronic) History of tobacco use disorder (Acute 10/13/17) Status post cataract extraction and insertion of intraocular lens of right eye (Chronic 11/05/18) Status post cataract extraction and insertion of intraocular lens of left eye (Chronic 10/15/18) Anemia due to vitamin B12 deficiency (Acute 10/13/17) Asymptomatic menopause (Acute 10/12/17) Bilateral carotid artery disease (Acute 10/13/17) Cerebrovascular accident (CVA) (Acute 10/13/17) Choledocholithiasis (Acute 10/13/17) Closed displaced fracture of lateral malleolus of right fibula with delayed healing (Acute 12/23/17) Fibromyalgia (Acute 10/13/17) BONNIE (generalized anxiety disorder) (Acute 10/13/17) Mild cognitive impairment, so stated (Acute 10/13/17) Other hyperlipidemia (Acute 10/13/17) Rheumatoid arthritis (Acute 10/13/17) 07/18/21 Seropositive rheumatoid arthritis S/P ERCP (Acute 10/13/17) 02/09 w/single stone removed. 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 Neoplasm Father No problems noted. Social History Smoking/Tobacco Use Status: Former Tobacco Use Smoking risk assessment performed?: Yes Alcohol Intake: current Alcohol Intake frequency: 0-2 drinks per day Alcohol type: wine Drug use: Never Substance use type: does not use Caregiver/Support person: No Housing: apartment Number of Children: 1 number of grandchildren: 3 Communication Needs: Corrective Lenses Pets and animals: Yes Pets and animals: cat(s) Current gender identity: female What is your relationship status?: Panel score (0-1 are the most socially isolated patients): 0 What type of physical activity do you participate in: none and other Details: line dancing Frequency: 1-2 times per week Seatbelt use: always Drive intox or ride w/intox truck driver rubbish collector: No Water heater temp set <120 deg: Yes Working smoke detector in home: Yes Fire extinguisher in home: Yes Carbon monox detector in home: Yes Do you feel safe at home: Yes Do you feel safe in your relationship?: Yes Victim of physical abuse: No Victim of emotional abuse: No Victim of sexual abuse: No Would you like helpful sources: No Exam Narrative Exam Narrative: Constitutional: Alert and oriented x3. Appears stated age. Normal body habitus. Head: Normocephalic, no trauma. Eyes: Pupils PERRL, Red reflex noted, EOM's intact. Eyelids symmetrical without lesions, discharge, or swelling. ENT: Bilateral TM's WNL, External ear normal to inspection, no mastoid TTP, swelling, or erythema, Nasal turbinates WNL, no nasal discharge. Normal dentition, Posterior pharynx WNL, no exudate. Chest: RRR, Normal S1, S2, distal pulses intact. Tenderness to palpation. Chest sounds are expressed Resp: Lungs clear to auscultation bilaterally, no wheezes, rales, or rhonchi. Abdomen: Soft, non-distended, Normoactive bowel sounds all 4 quads. Musculoskeletal: Normal gait, 5/5 strength to all four extremities. Skin: No suspicious rashes or lesions. Capillary refill less than 2 sec. Neurologic: Cranial nerves II-XII intact. Alert and oriented x 3. Motor: No deficits noted. Sensory: Intact bilaterally all 4 extremities. Reflexes: DTR's intact bilaterally.. Hematologic/Lymphatic: No ecchymosis, no lymphadenopathy. Chest Chest/axillae images: 1. Contusion, Tenderness with palpation Course Vital Signs Vital signs: Vital Signs Temperature 36.2 C L 02/25/22 14:17 Pulse 110 H 02/25/22 14:17 Respiratory Rate 18 02/25/22 14:17 Blood Pressure 133/90 02/25/22 14:17 Pulse Oximetry 98 02/25/22 14:17 Temperature 36.2 C L 02/25/22 14:17 Temperature Source Temporal Artery Scan 02/25/22 14:17 Pulse 94 H 02/25/22 15:34 Respiratory Rate 18 02/25/22 14:17 Blood Pressure 126/84 02/25/22 15:34 Blood Pressure Position Supine 02/25/22 14:17 Pulse Oximetry 94 02/25/22 15:34 Oxygen Delivery Method Room Air 02/25/22 15:34 Oxygen Flow Rate 0 02/25/22 15:34
[2022-02-25] MEDS: oxyCODONE 5 MG TAB PO (16:27)
== END 2022-02-25 16:48 | disposition home or self-care (01) ==
PROVIDERS: Emergency Provider Registered Nurse Emergency; PCP Nurse Practitioner
DX: G89.11 Acute pain due to trauma (principal); R07.89 Other chest pain; Z87.891 Personal history of nicotine dependence; W01.198A Fall on same level from slipping, tripping and stumbling with subsequent striking against other object, initial encounter
CPT/HCPCS: 99284; 71046; 71100